=== PATIENT | female | born 1995 ===

== ENCOUNTER 2018-02-19 14:34 | Inpatient (IN) ==
[2018-02-19] MEDS ORDERED: MEPERIDINE 50 MG/1 ML VIAL IV PRN (15:13)
[2018-02-19] MEDS ORDERED: ONDANSETRON 4 MG/2 ML VIAL IV PRN (15:13)
[2018-02-19] MEDS ORDERED: DINOPROSTONE VAG GEL 10 MG SYRINGE VAG ONE (15:15)
[2018-02-19 15:39] LABS: Basophils % 0.2 % (0.0-0.8); Eosinophils % 0.3 % (0.00-10.9); Hematocrit 33.8 VOL% (35.7-47.0); Hemoglobin 11.2 GM/DL (12.0-16.0); Immature Granulocytes % 0.5 %; Immature Granulocytes Absolute 0.03 #; Lymphocytes # 1.4 10*3/uL (1.4-4.0); Lymphocytes % 20.8 % (21.3-54.2); Mean Corpuscular HGB Conc 33.1 GM/DL (32-36); Mean Corpuscular Hemoglobin 31 PG (27-34); Mean Corpuscular Volume 93.6 FL (87-102); Mean Platelet Volume 9.9 FL (9.6-12.0); Monocytes # 0.5 10*3/uL (0.11-0.8); Monocytes % 6.9 % (1.7-12.7); Neutrophils # 4.6 10*3/uL (1.4-7.4); Neutrophils % 71.3 % (38.7-73.9); Platelet Count 261 T/CUMM (130-400); Red Blood Count 3.61 MC/CUMM (3.8-5.5); Red Cell Distribution Width 13.5 % (9.3-17.3); White Blood Count 6.5 T/CUMM (4-12)
[2018-02-19 16:07] LABS: Albumin 2.5 G/DL (3.4-5.0); Bilirubin,Total 0.6 MG/DL (0.2-1.0); Calcium 8.4 MG/DL (8.5-10.1); Osmolality,Calculated 274.8 MOS/KG (273-304); Potassium 3.6 MMOL/L (3.5-5.1); Total Protein 7.1 G/DL (6.4-8.3); Uric Acid 4.6 MG/DL (2.6-6.0)
[2018-02-19] MEDS: LACTATED RINGERS 1,000 ML IV SCH ×2 (16:40→19:40)
[2018-02-19] MEDS ORDERED: diphenhydrAMINE 50 MG/1 ML VIAL IV PRN ×2 (18:27)
[2018-02-19] MEDS ORDERED: LACTATED RINGERS 1,000 ML IV ONE (18:27)
[2018-02-19] MEDS ORDERED: ONDANSETRON 4 MG/2 ML VIAL IV ONE (18:27)
[2018-02-19] MEDS ORDERED: NALOXONE 0.4 MG/ML VIAL IV PRN (18:27)
[2018-02-19] MEDS ORDERED: PROMETHAZINE 25 MG/1 ML VIAL IM ONE (18:27)
[2018-02-19] MEDS ORDERED: hydrOXYzine HCL 25 MG/1 ML VIAL IM PRN (18:27)
[2018-02-19] MEDS ORDERED: ePHEDrine 50 MG/ML AMP IV PRN (18:27)
[2018-02-19] MEDS ORDERED: CITRIC ACID/SODIUM CITRATE 30 ML UDCUP PO ONE (18:27)
[2018-02-19] MEDS ORDERED: FAMOTIDINE 20 MG/2 ML VIAL IV ONE (18:27)
[2018-02-19] MEDS ORDERED: fentaNYL 2 MCG/ROPIV 0.2% EPID 100 ML EPIDURAL SCH (18:30)
[2018-02-20] MEDS: OXYTOCIN/LR 20 UNIT/1,000 ML BAG IV SCH ×2 (02:10→16:56)
[2018-02-20] MEDS ORDERED: LIDOCAINE 1% 50 ML VIAL ONE (14:22)
[2018-02-20] MEDS ORDERED: miSOPROStol 200 MCG TABLET ONE (14:22)
[2018-02-20] MEDS ORDERED: METHYLERGONOVINE 0.2 MG/1 ML AMP ONE (14:22)
[2018-02-21] MEDS ORDERED: LANOLIN 50% CREAM 0.3 OZ TUBE TOP PRN (03:12)
[2018-02-21] MEDS ORDERED: BENZOCAINE 20%/MENTHOL 0.5% SPRAY 56 GM CAN TOP PRN (03:12)
[2018-02-21] MEDS ORDERED: IBUPROFEN 800 MG TABLET PO PRN (03:12)
[2018-02-21] MEDS ORDERED: BISACODYL 10 MG SUPP RECTAL PRN (03:12)
[2018-02-21] MEDS ORDERED: MEASLES/MUMPS/RUBELLA VACCINE 0.5 ML VIAL SUBCUT ONE (03:12)
[2018-02-21] MEDS ORDERED: WITCH HAZEL PADS 100/JAR TOP PRN (03:12)
[2018-02-21] MEDS ORDERED: HYDROCORTISONE 2.5% RECTAL CREAM 30 GM TUBE TOP PRN (03:12)
[2018-02-21] MEDS ORDERED: RHO(D) IMMUNE GLOBULIN 300 MCG SYRINGE IM ONE (03:12)
[2018-02-21] MEDS ORDERED: ACETAMINOPHEN 325 MG TABLET PO PRN (03:12)
[2018-02-21] MEDS ORDERED: oxyCODONE/ACETAMINOPHEN 5-325 MG TABLET PO PRN (03:12)
[2018-02-21] MEDS ORDERED: DIPH/TET/ACEL PERT BOOSTER VACCINE 0.5 ML VIAL IM ONE (03:12)
[2018-02-21] MEDS ORDERED: ACETAMINOPHEN/CODEINE 300-30 MG TABLET PO PRN (03:12)
[2018-02-21] MEDS: DOCUSATE SODIUM 100 MG CAPSULE PO SCH ×3 (05:15→21:10)
[2018-02-21 06:43] LABS: Basophils % 0.3 % (0.0-0.8); Eosinophils % 0.3 % (0.00-10.9); Hematocrit 27.9 VOL% (35.7-47.0); Hemoglobin 9.3 GM/DL (12.0-16.0); Immature Granulocytes % 0.4 %; Immature Granulocytes Absolute 0.05 #; Lymphocytes # 1.7 10*3/uL (1.4-4.0); Lymphocytes % 14.6 % (21.3-54.2); Mean Corpuscular HGB Conc 33.3 GM/DL (32-36); Mean Corpuscular Hemoglobin 31 PG (27-34); Mean Corpuscular Volume 94.3 FL (87-102); Mean Platelet Volume 9.8 FL (9.6-12.0); Monocytes # 0.8 10*3/uL (0.11-0.8); Monocytes % 6.7 % (1.7-12.7); Neutrophils % 77.7 % (38.7-73.9); Platelet Count 224 T/CUMM (130-400); Red Blood Count 2.96 MC/CUMM (3.8-5.5); White Blood Count 11.6 T/CUMM (4-12)
[2018-02-21] MEDS: oxyCODONE/ACETAMINOPHEN 5-325 MG TABLET PO PRN ×2 (07:34→19:55)
[2018-02-21] MEDS: FERROUS SULFATE 325 MG TABLET PO SCH ×2 (10:25→21:14)
[2018-02-22] MEDS: oxyCODONE/ACETAMINOPHEN 5-325 MG TABLET PO PRN (04:20)
[2018-02-22] MEDS: DOCUSATE SODIUM 100 MG CAPSULE PO SCH (09:01)
[2018-02-22] MEDS: FERROUS SULFATE 325 MG TABLET PO SCH (09:01)
[2018-02-22 11:39] VITALS: BP 120/72
== END 2018-02-22 13:25 | disposition home or self-care (01) | DRG 807 ==
LOC: N.LDOUT 14:34 → N.LD 14:39 → N.OB 02-20 20:05
PROVIDERS: ADMIT Obstetrics & Gynecology; ATTEND Obstetrics & Gynecology

== ENCOUNTER 2021-02-07 23:53 | Inpatient (IN) ==
[2021-02-08] MEDS ORDERED: MEPERIDINE 50 MG/1 ML VIAL IV PRN (01:20)
[2021-02-08] MEDS ORDERED: LACTATED RINGERS 1,000 ML IV PRN (01:20)
[2021-02-08] MEDS ORDERED: ONDANSETRON 4 MG/2 ML VIAL IV PRN ×2 (01:20→19:46)
[2021-02-08] MEDS ORDERED: BUTORPHANOL 2 MG/ML VIAL IV PRN (01:20)
[2021-02-08] MEDS ORDERED: OXYTOCIN/LR 30 UNIT/1,000 ML BAG IV PRN (01:25)
[2021-02-08] MEDS: CLINDAMYCIN INJ 900 MG/50 ML PREMIX IV SCH ×2 (01:47→11:09)
[2021-02-08 02:18] LABS: Basophils % 0.3 % (0.0-0.8); Eosinophils # 0.1 10*3/uL (0.0-0.87); Eosinophils % 0.7 % (0.00-10.9); Hematocrit 33.2 VOL% (35.7-47.0); Immature Granulocytes % 0.7 %; Immature Granulocytes Absolute 0.05 #; Lymphocytes # 1.2 10*3/uL (1.4-4.0); Mean Corpuscular HGB Conc 33.1 GM/DL (32-36); Mean Corpuscular Volume 95.7 FL (87-102); Mean Platelet Volume 10.1 FL (9.6-12.0); Monocytes % 10.2 % (1.7-12.7); Neutrophils % 70.1 % (38.7-73.9); Platelet Count 229 T/CUMM (130-400); Red Blood Count 3.47 MC/CUMM (3.8-5.5); Red Cell Distribution Width 13.9 % (9.3-17.3); White Blood Count 6.8 T/CUMM (4-12)
[2021-02-08 02:48] LABS: Alanine Aminotransferase 10 U/L (13-56); Albumin 2.5 G/DL (3.4-5.0); Alkaline Phosphatase 223 U/L (45-117); Aspartate Amino Transferase 15 U/L (0-37); Bilirubin,Total < 0.39 MG/DL (0.20-1.00); Blood Urea Nitrogen 14 MG/DL (7-18); Calcium 8.8 MG/DL (8.5-10.1); Carbon Dioxide 22 MMOL/L (21-32); Estimated Glom Filtration Rate 127 ML/MIN; Glucose 90 MG/DL (74-106); Osmolality,Calculated 273.8 MOS/KG (273-304); Potassium 3.7 MMOL/L (3.5-5.1); Sodium 137 MMOL/L (136-145)
[2021-02-08] MEDS ORDERED: PROMETHAZINE 25 MG/1 ML VIAL IM ONE (09:01)
[2021-02-08] MEDS ORDERED: ePHEDrine 50 MG/ML VIAL IV PRN (09:01)
[2021-02-08] MEDS ORDERED: hydrOXYzine HCL 25 MG/1 ML VIAL IM PRN (09:01)
[2021-02-08] MEDS ORDERED: ONDANSETRON 4 MG/2 ML VIAL IV ONE (09:01)
[2021-02-08] MEDS ORDERED: LACTATED RINGERS 1,000 ML IV ONE (09:01)
[2021-02-08] MEDS ORDERED: diphenhydrAMINE 50 MG/1 ML VIAL IV PRN ×2 (09:01)
[2021-02-08] MEDS ORDERED: CITRIC ACID/SODIUM CITRATE 30 ML UDCUP PO ONE (09:06)
[2021-02-08] MEDS ORDERED: NALOXONE 0.4 MG/ML VIAL IV PRN (09:06)
[2021-02-08] MEDS ORDERED: FAMOTIDINE 20 MG/2 ML VIAL IV ONE (09:06)
[2021-02-08] MEDS ORDERED: fentaNYL 2 MCG/ROPIV 0.2% EPID 100 ML EPIDURAL SCH (10:00)
[2021-02-08] MEDS: OXYTOCIN/LR 20 UNIT/1,000 ML BAG IV PRN ×2 (10:50→18:33)
[2021-02-08 12:30] LABS: Bilirubin,Urine Negative (Negative); Blood, Urine Negative (Negative); Glucose,Urine (UA) Negative (Negative); Ketones,Urine 5 mg/dL (Negative); Mucus,Urine Occasional /LPF (Occasional); Nitrite,Urine Negative (Negative); Protein,Urine Negative; RBC,Urine <1 /HPF (0-4); Squamous Epithelial Cell,Urine Occasional /HPF (0-10); Urine Appearance CLEAR (Clear); Urine Color Yellow (Yellow); Urine Specific Gravity 1.009 (1.001-1.035); Urine Urobilinogen < 2.0 EU/DL (<2.0)
[2021-02-08] MEDS ORDERED: LIDOCAINE 1% 50 ML VIAL ONE (15:34)
[2021-02-08] MEDS ORDERED: METHYLERGONOVINE 0.2 MG/1 ML AMP IM ONE (15:50)
[2021-02-08] MEDS ORDERED: METHYLERGONOVINE 0.2 MG/1 ML AMP ONE (15:54)
[2021-02-08 16:24] LABS: Cord Venous Blood HCO3 21.5 MMOL/L; Cord Venous Blood PCO2 42.8 MMHG; Cord Venous Blood PO2 30.5
[2021-02-08] MEDS ORDERED: ACETAMINOPHEN 325 MG TABLET PO PRN (19:46)
[2021-02-08] MEDS ORDERED: LANOLIN 50% CREAM 0.3 OZ TUBE TOP PRN (19:46)
[2021-02-08] MEDS ORDERED: OXYTOCIN/LR 20 UNIT/1,000 ML BAG IV ONE (19:46)
[2021-02-08] MEDS ORDERED: RHO(D) IMMUNE GLOBULIN 300 MCG SYRINGE IM ONE (19:46)
[2021-02-08] MEDS ORDERED: WITCH HAZEL PADS 100/JAR TOP PRN (19:46)
[2021-02-08] MEDS ORDERED: HYDROCORTISONE 2.5% RECTAL CREAM 30 GM TUBE TOP PRN (19:46)
[2021-02-08] MEDS ORDERED: oxyCODONE/ACETAMINOPHEN 5-325 MG TABLET PO PRN ×2 (19:46)
[2021-02-08] MEDS ORDERED: MEASLES/MUMPS/RUBELLA VACCINE 0.5 ML VIAL SUBCUT ONE (19:46)
[2021-02-08] MEDS ORDERED: DIPH/TET/ACEL PERT BOOSTER VACCINE 0.5 ML VIAL IM ONE (19:46)
[2021-02-08] MEDS ORDERED: BENZOCAINE 20%/MENTHOL 0.5% SPRAY 56 GM CAN TOP PRN (19:46)
[2021-02-08] MEDS ORDERED: BISACODYL 10 MG SUPP RECTAL PRN (19:46)
[2021-02-08] MEDS ORDERED: FLUTICASONE 50 MCG NASAL SPRAY 16 GM BOTTLE BOTH NARES SCH (21:00)
[2021-02-08] MEDS: DOCUSATE SODIUM 100 MG CAPSULE PO SCH (21:37)
[2021-02-08] MEDS: IBUPROFEN 800 MG TABLET PO PRN (22:42)
[2021-02-09] MEDS: IBUPROFEN 800 MG TABLET PO PRN (04:02)
[2021-02-09 04:53] LABS: Basophils % 0.1 % (0.0-0.8); Eosinophils % 0.3 % (0.00-10.9); Hematocrit 29.5 VOL% (35.7-47.0); Hemoglobin 9.7 GM/DL (12.0-16.0); Immature Granulocytes % 0.7 %; Immature Granulocytes Absolute 0.05 #; Lymphocytes # 1.5 10*3/uL (1.4-4.0); Lymphocytes % 19.7 % (21.3-54.2); Mean Corpuscular HGB Conc 32.9 GM/DL (32-36); Mean Corpuscular Volume 95.8 FL (87-102); Mean Platelet Volume 9.8 FL (9.6-12.0); Monocytes % 9.6 % (1.7-12.7); Neutrophils % 69.6 % (38.7-73.9); Platelet Count 194 T/CUMM (130-400); Red Blood Count 3.08 MC/CUMM (3.8-5.5); Red Cell Distribution Width 13.9 % (9.3-17.3); White Blood Count 7.6 T/CUMM (4-12)
[2021-02-09] MEDS: DOCUSATE SODIUM 100 MG CAPSULE PO SCH ×2 (08:15→20:12)
[2021-02-10] MEDS: DOCUSATE SODIUM 100 MG CAPSULE PO SCH (08:19)
[2021-02-10 10:10] VITALS: BP 111/68
== END 2021-02-10 12:10 | disposition home or self-care (01) | DRG 560 ==
LOC: N.LD 23:53 → N.OB 02-08 21:00
PROVIDERS: ADMIT Obstetrics & Gynecology; ATTEND Obstetrics & Gynecology